=== PATIENT | female | born 1955 | race Asian ===

== ENCOUNTER 2016-08-11 11:52 | Inpatient (IN) | payer BC ==
[~2016-08-11] VITALS: Ht 147.3 cm; Wt 61.4 kg
[~2016-08-11 11:52] MED LIST: ACTONEL150 MG PO; AMBIEN10 MG PO; CELEXA20 MG PO; NEXIUM40 MG PO; NORCO 10/325 TA1 TA1 PO; VITAMIN D31000 UNIT PO; VYTORIN 10-40 M1 TAB PO; ZOFRAN4 MG PO
[2016-08-11 12:24] VITALS: BP 175/68
[2016-08-11 12:42] LABS: BASOPHILS 0.5 % (0.0-2.0); EOSINOPHILS 3.5 % (0-7); HEMATOCRIT 42.9 % (36.0-48.0); HEMOGLOBIN 14.1 g/dL (12-16); MCH 29.7 pg (26.0-34.0); MCHC 32.9 g/dL (31.0-37.0); MCV 90.5 fL (80.0-100.0); MEAN PLATELET VOLUME 9.8 fL (7.4-10.4); MONOCYTES 6.9 % (2-11); NEUTROPHILS 59.1 % (40-80); PLATELET COUNT 214 10x3/uL (130-400); RBC 4.74 10x6/uL (4.00-5.40); RDW 13.2 % (11.5-14.5); WBC 5.8 10x3/uL (4.8-10.8)
[2016-08-11 13:11] LABS: ALBUMIN 4.2 g/dL (3.4-5.0); ALKALINE PHOSPHATASE 49 U/L (46-116); ALT (SGPT) 22 U/L (10-68); BILIRUBIN - TOTAL 0.43 mg/dL (0.2-1.3); CALC OSMOLALITY 284 mosm/kg (275-300); CALCIUM 9.3 mg/dL (8.5-10.1); CARBON DIOXIDE 28.9 mmol/L (21.0-32.0); CHLORIDE - SERUM 105 mmol/L (98-107); CREATININE - SERUM 0.8 mg/dL (0.6-1.3); GLUCOSE 110 mg/dL (74-106); POTASSIUM - SERUM 4.4 mmol/L (3.5-5.1); PROTEIN - SERUM 7.5 g/dL (6.4-8.2); SODIUM 142 mmol/L (136-145); UREA NITROGEN 14 mg/dL (7-18); eGFR NON AFRICAN AMERICAN 77 mL/min (90-120)
[2016-08-11 13:12] VITALS: BP 175/68; Ht 147.3 cm; Wt 61.4 kg
[2016-08-11 13:24] LABS: CKMB 0.3 U/L (0.0-3.6); CREATINE KINASE 85 UL (21-215)
[2016-08-11 13:29] LABS: TROPONIN-I < 0.017 ng/mL (0.000-0.060)
--- NOTE | 2016-08-11 13:30 | NUR ---
ARRIVED FROM DOCTORS OFFICE, AWAKE AND ORIENTED. IV STARTED WITH 22 GA IN L HAND. NO EDEMA NOTED IN EXTREMITIES. WILL CONTINUE TO MONITOR.
[2016-08-11 16:05] VITALS: BP 141/70
--- NOTE | 2016-08-11 16:23 | NUR ---
PT RESTING IN BED WITH EYES OPEN PT DENIES ANY NAUSEA OR PAIN WILL CONTINUE TO MONITER CALL LIGHT IN REACH
--- NOTE | 2016-08-11 18:23 | NUR ---
PT RESTING IN BED WITH EYES OPEN CALL LIGHT IN REACH WILL MONITER
--- NOTE | 2016-08-11 19:30 | NUR ---
RECEIVED REPORT, IV-L. HAND-SL, PT DENIES ANY NEEDS, CALL LIGHT IN REACH, BED IS LOW, SRX2, WILL CONTINUE TO MONITOR
[2016-08-11 20:00] VITALS: BP 150/81
[2016-08-12] VITALS: BP 142/82
--- NOTE | 2016-08-12 00:53 | NUR ---
COAL HAULER AT BEDSIDE, NEEDS ADDRESSED AT THIS TIME. CALL LIGHT IN REACH. WILL CONT TO MONITOR.
[2016-08-12 03:47] LABS: BASOPHILS 0.4 % (0.0-2.0); EOSINOPHILS 4.4 % (0-7); HEMATOCRIT 41.8 % (36.0-48.0); HEMOGLOBIN 13.8 g/dL (12-16); LYMPHOCYTES 36.7 % (15-50); MCH 29.7 pg (26.0-34.0); MCV 89.9 fL (80.0-100.0); MEAN PLATELET VOLUME 9.6 fL (7.4-10.4); MONOCYTES 8.5 % (2-11); PLATELET COUNT 216 10x3/uL (130-400); RBC 4.65 10x6/uL (4.00-5.40); RDW 13.4 % (11.5-14.5)
[2016-08-12 03:50] LABS: ANION GAP 8.8 mmol/L (8-16); CALCIUM 8.6 mg/dL (8.5-10.1); CARBON DIOXIDE 30.9 mmol/L (21.0-32.0); CREATININE - SERUM 0.9 mg/dL (0.6-1.3)
[2016-08-12 03:53] LABS: POTASSIUM - SERUM 3.7 mmol/L (3.5-5.1)
[2016-08-12 04:00] VITALS: BP 133/66
--- NOTE | 2016-08-12 07:02 | HP ---
PATIENT: PETRA FU MEDICAL RECORD: [id number] ACCOUNT: [id number] LOCATION:[address] : [birth year] ADMISSION DATE: 08/11/16 HISTORY AND PHYSICAL EXAMINATION DATE OF ADMISSION: 08/11/2016 CHIEF COMPLAINT: Ringing in ears as well as extreme vertigo. HISTORY OF PRESENT ILLNESS: The patient is a 60-year-old oriental female who states over the past couple of days, she has been feeling really bad. States that she has extreme nausea as well as vertigo with movement. She has also ringing in her ears. She has been unable to take her blood pressure medication, last 2 days secondary to nausea. PAST MEDICAL HISTORY: Significant that she has had a history of having hypertension has also had hyperlipidemia. She has had headaches in the past. She has had osteoporosis, DJD of the knees. FAMILY HISTORY: Mother healthy. Father had heart disease. MEDICATIONS: Include hydrochlorothiazide 12.5 one p.o. q.a.m., Ambien 10 mg p.o. q.h.s. p.r.n. insomnia, losartan 100 mg once a day, Effexor ER 150 mg once a day, Vytorin 10/80 mg 1 p.o. q. day. ALLERGIES: CODEINE. SOCIAL HISTORY: The patient born and raised in [facility] has lived in [place] along with her for the past several years and moved here form [place]. She is educated through the 12th grade. She is currently unemployed. She denies any ethanol, tobacco use or abuse. REVIEW OF SYSTEMS: CONSTITUTIONAL: The patient does report having a headache. She denies any seizures or syncope. She denies change in visual or auditory acuity. PULMONARY: She denies any shortness of breath, cough, congestion, history of TB, asthma or bronchitis. CARDIOVASCULAR: No chest pain, palpitation, PND, orthopnea. GASTROINTESTINAL: No chronic nausea, vomiting, melena or hematochezia. GENITOURINARY: No urgency, frequency, or dysuria. PHYSICAL EXAMINATION: VITAL SIGNS: Her Weight is 139. Her blood pressure initially was 250/70, recheck is 222/100. The patient was given clonidine 0.1. HEENT: Unremarkable. NEUROLOGIC: Cranial nerves II through XII are intact. NECK: Supple. There is no adenopathy. HEART: Has a regular rhythm. No murmurs, gallops or rubs. LUNGS: Clear. ABDOMEN: Soft, nontender. EXTREMITIES: Lower extremities have no edema. LABORATORY DATA: The patient had a normal CBC today. EKG shows sinus rhythm, rate is approximately 70, a few PACs are noted. HISTORY AND PHYSICAL [id number] PETRA FU ASSESSMENT: Accelerated hypertension, vertigo, history of hypertension. PLAN: The patient is admitted. She will be placed on telemetry monitoring. The patient will have cardiac enzymes performed. She will be given Zofran for dizziness as well as Antivert. The patient will be placed on Protonix 40 mg IV q.12 hours. Also, continue her current medications. Place her on clonidine 0.1 p.o. q.8 hours as well as Vasotec 0.25 IV q.6 hours p.r.n. systolic pressure greater than 160. TRANSINT:[id number] Voice Confirmation ID: [id number] DOCUMENT ID: [id number] MAGALY AVILEZ MD at 0702 CC: [id number] DICTATION DATE: 08/11/16 1135 COMMUNICATIONS PROGRAMMER: 08/11/16 1413 ADM IN [facility] [address] [place] [address]
[2016-08-12] MEDS ORDERED: NORVASC5 MG PO (07:03)
[2016-08-12] MEDS ORDERED: ZOFRAN ODT4 MG/UDTAB PO (07:04)
[2016-08-12] MEDS ORDERED: ANTIVERT12.5 MG PO (07:05)
--- NOTE | 2016-08-12 07:38 | NUR ---
PT IS ALERT. ASSESSMENT DONE PER FLOWSHEET. NO OTHER NEEDS AT THIS TIME. WILL CONTINUE TO MONITOR.
[2016-08-12 07:54] VITALS: BP 136/70
[2016-08-12] MEDS ORDERED: HYDROCHLOROTH12.5 M1 PO (10:46)
[2016-08-12] MEDS ORDERED: COZAAR100 MG PO (10:46)
[2016-08-12] MEDS ORDERED: EFFEXOR XR150 MG PO (10:47)
--- NOTE | 2016-08-12 11:29 | NUR ---
Patient Name: PETRA FU Admission Status: Elective Accout number: [id number] Admission Date: 08-11-2016 : 1955 Admission Diagnosis: Attending: SALLY Current LOS: 1 Anticipated DC Date: 08-12-2016 Planned Disposition: Home Primary Insurance: [employer] OUT OF STATE Discharge Planning Comments: * Is the patient Alert and Oriented? Yes 0 * How many steps to enter\exit or inside your home? O-O / 15-I 0 * PCP DR. AVILEZ 0 * Pharmacy [facility] 0 * Preadmission Environment Home with Family 0 * ADLs Independent 0 * Equipment None 0 * Other Equipment NONE 0 * List name and contact numbers for known caregivers / representatives who currently or will assist patient after discharge: JAKI FU, SPOUSE, 0 * Community resources currently utilized None 0 * Please name any agencies selected above. NONE 0 * Additional services required to return to the preadmission environment? No 0 * Can the patient safely return to the preadmission environment? Yes 0 * Has this patient been hospitalized within the prior 30 days at any hospital? No 0 CM MET WITH PT AND SPOUSE IN ROOM TO DISCUSS DISCHARGE PLANNING AND NEEDS. PT REPORTS LIVING AT HOME INDEPENDENTLY WITH SPOUSE. PT HAS NO MEDICAL EQUIPMENT AND NO OUTSIDE SERVICES ASSISTING IN THE HOME. CM DISCUSSED AVAILABILITY OF HOME HEALTH, REHAB SERVICES AND MEDICAL EQUIPMENT. PT DENIES DISCHARGE NEEDS, REPORTS HER SPOUSE IS HERE TO PICK HER UP FOR DISCHARGE HOME. Tufting Creeler: Georgi Liu
[2016-08-12 11:38] VITALS: BP 115/64
--- NOTE | 2016-09-14 08:20 | DS ---
PATIENT:PETRA FU :51 MEDICAL RECORD: [id number] DISCHARGE SUMMARY ADMISSION DATE: 08/11/16 DISCHARGE DATE: 08/12/16 DATE OF ADMISSION: 08/11/2016 DATE OF DISCHARGE: 08/12/2016 CONDITION ON DISCHARGE: Improved. ADMITTING DIAGNOSES: Accelerated hypertension, vertigo, history of hypertension. DISCHARGE DIAGNOSES: Dizziness, giddiness, essential hypertension, hyperlipidemia, and tinnitus. HOSPITAL COURSE: This patient is a 60-year-old oriental female, who over the past couple of days states she had been feeling really bad, states she had extreme nausea and vertigo with movement. She also had ringing in her ears. The patient had been unable to take her blood pressure medication. PHYSICAL EXAMINATION: VITAL SIGNS: She presents to the clinic with a weight of 139. Her blood pressure was initially 250/70, recheck is 222/100. She was given clonidine 0.1 mg. HEENT: Unremarkable. NECK: Supple. There is no adenopathy. HEART: Had a regular rhythm. No murmurs, gallops or rubs. LUNGS: Clear. She had an EKG showing sinus rhythm in 70, a few PACs. The patient was admitted. She was placed on IV Vasotec for systolic pressure greater than 160. The patient had a chest x-ray. Chest x-ray showed no active cardiopulmonary process. She also had a CT scan of the head showing no acute intracranial abnormalities. On the morning of discharge, the patient's blood pressure had dropped down to 115/64, her pulse was 49. She was afebrile. She was ready for discharge. She had a white count of 5, hemoglobin 13.8, hematocrit 41.8, and her platelets were 216. She had a sodium of 140, potassium 3.7, chloride 104, CO2 was 30, BUN 15, creatinine 0.9, glucose slightly elevated at 124. The patient was stable and can be discharged. DISCHARGE MEDICATIONS: Include amlodipine 5 mg once a day, Zofran 4 mg q.4 hours p.r.n. nausea and vomiting, Antivert 12.5 one to two every 6 hours p.r.n. dizziness, Vytorin 10/40 one p.o. q. day, Cozaar 100 mg once a day, HCTZ 12.5 mg once a day, and Effexor 150 mg once a day. DISCHARGE INSTRUCTIONS: The patient was discharged home. She was to continue all of her current medications. She would follow up with me in 1 week and to be on a regular diet. TRANSINT:[id number] Voice Confirmation ID: [id number] DOCUMENT ID: [id number] DISCHARGE SUMMARY REPORT [id number] PETRA FU JAMES MD at 0820 CC: [id number] DICTATION DATE: 09/13/16 1543 E MARKETING SPECIALIST: 09/13/16 2347 DIS IN 08/12/16 [id number] [place] [address]
== END 2016-08-12 11:58 | disposition home or self-care (01) | DRG 305 ==
LOC: D.M2 11:52
PROVIDERS: ADMIT Family Medicine
DX: I10 Essential (primary) hypertension (principal); R42 Dizziness and giddiness; M81.0 Age-related osteoporosis without current pathological fracture; M17.9 Osteoarthritis of knee, unspecified; E78.5 Hyperlipidemia, unspecified; H93.19 Tinnitus, unspecified ear

== ENCOUNTER → 2017-05-06 17:21 | Outpatient (CLI) | payer BC ==
[2016-08-11 13:12] VITALS: BMI 28.3
[~2017-05-06 17:21] MED LIST changes: +ANTIVERT12.5 MG PO; +COZAAR100 MG PO; +EFFEXOR XR150 MG PO; +HYDROCHLOROTH12.5 M1 PO; +NORVASC5 MG PO; +ZOFRAN ODT4 MG/UDTAB PO
== END | disposition home or self-care (01) ==
LOC: D.MAMMO 13:15
DX: Z12.31 Encounter for screening mammogram for malignant neoplasm of breast (principal)

== ENCOUNTER → 2018-05-26 20:00 | Outpatient (CLI) | payer BC ==
[2016-08-11 13:12] VITALS: BMI 28.3
== END | disposition home or self-care (01) ==
LOC: D.MAMMO 13:00
DX: Z12.31 Encounter for screening mammogram for malignant neoplasm of breast (principal)

== ENCOUNTER 2020-07-10 18:38 | Outpatient (CLI) | payer MEDICARE, BC ==
[2016-08-11 13:12] VITALS: BMI 28.3
== END 2020-07-10 23:59 | disposition home or self-care (01) ==
LOC: D.MAMMO 18:38
PROVIDERS: ATTEND Family Medicine
DX: Z12.31 Encounter for screening mammogram for malignant neoplasm of breast (principal)